=== PATIENT | male | born 1970 | race Caucasian/White ===

== ENCOUNTER → 2022-08-26 13:54 | Outpatient (CLI) | payer BC, SELFPAY ==
--- NOTE | ~2022-08-26 | MR_ITS ---
MRI of the left knee Clinical history: Pain Technique: Coronal proton density and proton density-weighted images, sagittal proton-density and T2 fat-sat images, and axial proton-density fat-saturated images were acquired. Findings: There is increased signal of the ACL, compatible mucoid degeneration, and possible tiny int raligamentous ganglion cyst. No definite ACL rupture evident. Posterior cruciate ligament is intact. Medial collateral ligament and the lateral collateral ligament, proximal are intact. Popliteus tendon is intact. Medial and lateral menisci are intact, without evidence of tear. Articular cartilage is well preserved throughout the knee. Bone marrow signals are essentially unrema rkable. There is low signal thickening of the patellar tendon. Distal quadriceps tendon is unremarkable. No j oint effusion or Sotelo's cyst. 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 Diffuse low signal thickening of the patellar tendon. Correlate for prior surgical repair. Reviewed, dictated and finalized at [facility]. 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 Diffuse low signal thickening of the patellar tendon. Correlate for prior surgi cassidy repair.
--- NOTE | ~2022-08-26 | MR_ITS ---
MRI of the right knee Clinical history: Pain Technique: Coronal proton density and proton density-weighted images, sagittal proton-density and T2 fat-sat images, and axial proton-density fat-saturated images were acquired. Findings: Anterior and posterior cruciate ligaments are intact. Medial collateral ligament and the la teral collateral ligament conflux are intact. Popliteus tendon is intact. Medial meniscus is intact, without evidence of tear. There is horizontal tear of the anterior horn an d body of the lateral meniscus. There is a probable early developing anterior para-meniscal cyst jj cent to the anterior horn of the lateral meniscus measuring approximately 1.0 x 0.7 cm in size (serie s 4 image 9, series 6 images 12-13). Articular cartilage is well preserved throughout the knee. Bone marrow signals are unremarkable. Extensor mechanism is unremarkable. No significant joint effusion or Sotelo's cyst. Impression: Horizontal tear of the anterior horn and body lateral meniscus with associated 1.0 x 0.7 cm developin g para-meniscal cyst adjacent to the anterior horn. Reviewed, dictated and finalized at location . Y LEVEL FINANCE Impression: Horizontal tear of the anterior horn and body lateral meniscus with associated 1.0 x 0.7 cm developing para-meniscal cyst adjacent to the anterior horn.
== END ==
PROVIDERS: PCP Family Medicine; Visit Provider Orthopaedic Surgery
DX: S83.281A Other tear of lateral meniscus, current injury, right knee, initial encounter (principal); M25.562 Pain in left knee; R93.6 Abnormal findings on diagnostic imaging of limbs
CPT/HCPCS: 73721